=== PATIENT | female | born 2005 | race Caucasian/White ===

== ENCOUNTER 2023-08-06 10:45 | Outpatient (RCR) | payer OTHER | END 2023-08-18 | LOC: WSOH | DX: S00.83XD Contusion of other part of head, subsequent encounter (principal); S06.0X0D Concussion without loss of consciousness, subsequent encounter; M54.2 Cervicalgia; G90.A Postural orthostatic tachycardia syndrome [POTS]; J45.909 Unspecified asthma, uncomplicated; K21.9 Gastro-esophageal reflux disease without esophagitis; Y99.0 Civilian activity done for income or pay ==

== ENCOUNTER 2024-04-03 07:00 | Emergency (ER) | payer OTHER ==
[~2024-04-03] VITALS: Ht 162.6 cm; Wt 125.0 kg
[2024-04-03 07:04] VITALS: TEMP 98.3
[2024-04-03] MEDS ORDERED: NS 1,000 ML IV ONE (07:45)
[2024-04-03 07:51] LABS: BASO # 0.1 K/mm3 (0.0-0.2); BASO % 0.5 % (0.0-2.0); EOS # 0.5 K/mm3 (0.0-0.7); EOS % 5.3 % (0.0-4.0); GRAN % 62.6 % (42.2-75.2); HEMATOCRIT 42.9 % (35.0-45.0); HEMOGLOBIN 13.7 g/dl (12.0-15.0); LYMPH # 2.3 K/mm3 (1.2-3.4); LYMPH % 24.5 % (20.0-51.0); MEAN CELL VOLUME 90 fl (80.0-95.0); MEAN CORPUSCULAR HEMOGLOBIN 29 pg (26-32); MEAN CORPUSCULAR HGB CONC 32 g/dl (33.0-37.0); MEAN PLATELET VOLUME 9.9 fl (7.4-10.4); MONO # 0.7 K/mm3 (0.1-0.6); MONO % 6.8 % (1.7-9.3); PLATELET COUNT 227 K/mm3 (130-400); RED BLOOD COUNT 4.77 M/mm3 (4.10-5.30); REDCELL DISTRIBUTION WIDTH-CV 13.4 % (11.5-14.5)
[2024-04-03 08:26] LABS: ALANINE AMINOTRANSFERASE 64 U/L (0-55); ALBUMIN 3.7 g/dL (3.5-5.0); ALKALINE PHOSPHATASE 51 U/L (40-150); ANION GAP 12 mmol/L (7-16); AST,SGOT 34 U/L (5-34); BLOOD UREA NITROGEN 13 mg/dL (7-19); CALCIUM 9.2 mg/dL (8.4-10.2); CHLORIDE 109 mEq/L (98-107); CREATININE, serum 0.82 mg/dL (0.57-1.11); GLUCOSE 122 mg/dL (70-99); POTASSIUM 3.6 mEq/L (3.5-4.5); SODIUM 140 mEq/L (136-145); TOTAL PROTEIN 7.3 g/dl (6.2-8.1)
[2024-04-03 08:37] LABS: TROPONIN-I < 0.010 ng/mL (0.00-0.033)
[2024-04-03] MEDS ORDERED: NORCO 325 MG-51 TAB PO (09:37)
[2024-04-03 10:01] VITALS: BP 118/82; PULSE 92
== END 2024-04-03 10:03 | disposition home or self-care (01) ==
LOC: COL.ER 07:00
PROVIDERS: Personal Emergency Response Attendant
DX: R07.89 Other chest pain (principal); R00.0 Tachycardia, unspecified
CPT/HCPCS: J7030